=== PATIENT | male | born 1995 | race Hispanic/Latino ===

== ENCOUNTER 2024-05-14 06:32 | Emergency (ER) | payer BC ==
[2024-05-14 07:35] LABS: Anion Gap 18 mmol/L (10-20); BUN (Urea Nitrogen) 15 mg/dL (8.9-20.6); Calc. Creatinine Clearance 0 mL/min (70-130); Carbon Dioxide 18 mmol/L (22-29); Chloride 108 mmol/L (98-107); Estimated GFR 120; Glucose 110 mg/dL (70-105); Lipase 54 U/L (8-78); Potassium 3.3 mmol/L (3.5-5.1); Sodium 141 mmol/L (136-145)
[2024-05-14 07:36] LABS: #Basophils 0.04 10x3/uL (0.0-0.2); %Basophils 0.3 % (0.0-1.0); %Eosinophils 0.6 % (0.0-10.0); %Lymphocytes 14.4 % (21.0-51.0); %Monocytes 4.2 % (0.0-10.0); %Neutrophils 79.6 % (42.0-75.0); Hematocrit 44.3 % (42.0-52.0); Hemoglobin 15.3 g/dL (14.0-18.0); Mean Corpuscular HGB CONC 34.5 g/dL (32.0-36.0); Mean Corpuscular Hemoglobin 32.2 pg (27.0-31.0); Mean Corpuscular Volume 93.3 fL (78.0-98.0); Mean Platelet Volume 11.4 fL (7.4-10.4); Platelet Count 202 10x3/uL (130-400); RBC Distribution Width 12.2 % (11.5-14.5); Red Blood Cell (RBC) Count 4.75 mill/uL (4.70-6.10)
[2024-05-14 08:19] LABS: ALT (SGPT) 25 U/L (8-55); AST (SGOT) 32 U/L (5-34); Alkaline Phosphatase 50 U/L (40-110); Bilirubin, Total 1.3 mg/dL (0.2-1.2); Globulin 3.5 g/dL (2.4-3.5); Protein, Total 8.5 g/dL (6.0-8.3)
[2024-05-14] MEDS ORDERED: Ketorolac Tromethamine 30 MG (1 mL) VIAL ONE (08:27)
[2024-05-14] MEDS ORDERED: Ondansetron PF 4 MG/2 ML Vial ONE ×2 (08:27→11:47)
[2024-05-14] MEDS ORDERED: Piperacillin/Tazobactam 4.5 GM VIAL ONE (08:53)
[2024-05-14] MEDS ORDERED: Sodium Chloride 0.9% 100 ML ONE (08:53)
[2024-05-14] MEDS ORDERED: Morphine 4 MG/ML VIAL ONE ×2 (09:13→12:30)
[2024-05-14 09:58] LABS: Bacteria/HPF None Seen HPF (None Seen); Bilirubin Negative (Negative); Blood, Urine Negative (Negative); CAUTI Indications for Culture Pelvic or flank pain; Clarity Clear (Clear); Glucose, Urine (Dipstick) Normal (Negative); Ketone, Urine 60 mg/dL (Negative); Leukocyte Negative Leu/uL (Negative); Nitrite Negative (Negative); Protein, Urine (Dipstick) 30 mg/dL (Neg-Trace); RBC/HPF 0-3 HPF (0-3); Specific Gravity, Urine 1.038 (1.002-1.036); Squamous Epithelial None Seen HPF (0-3); Urobilinogen Normal mg/dL (Less than 2); WBC/HPF 0-3 HPF (0-3); pH, Urine 6.5 (5.0-9.0)
[2024-05-14 10:09] LABS: Lactic Acid 1.2 mmol/L (0.5-2.2)
[2024-05-14 10:17] LABS: Urine Culture Reflex No No
[2024-05-14] MEDS ORDERED: Potassium Chloride 20 MEQ TAB ONE (11:03)
[2024-05-14] MEDS ORDERED: Iopamidol-370 76% 500 ML MDV (1 ML CHARGE) ONE (12:18)
[2024-05-14] MEDS ORDERED: Pantoprazole 40 MG VIAL ONE (12:30)
[2024-05-14 12:58] LABS: Troponin I Less than 0.010 ng/mL (< 0.028)
== END 2024-05-14 14:48 | disposition home or self-care (01) ==
LOC: ERS 06:32
DX: K52.9 Noninfective gastroenteritis and colitis, unspecified (principal); E86.0 Dehydration; E87.6 Hypokalemia; F17.290 Nicotine dependence, other tobacco product, uncomplicated; Z55.6 Problems related to health literacy
CPT/HCPCS: 36415; 36416; 71045; 74177; 76705; 81001; 83605; 83690; 84484; 85025; 87040; 93005; 96361; 96365; 96375; 96376; C9113; J1885; J2270; J2405; J2543; J3490; Q9967

== ENCOUNTER 2024-12-03 10:34 | Outpatient (CLI) | payer BC | END 2024-12-03 10:35 | disposition home or self-care (01) | LOC: BICRAD 10:34 | PROVIDERS: ATTEND Family Medicine | DX: R07.89 Other chest pain (principal) | CPT/HCPCS: 71110 ==

== ENCOUNTER 2025-06-12 22:34 | Inpatient (IN) | payer BC ==
[~2025-06-12 22:34] MED LIST: Iopamidol 370 76% 100 ML VIAL ONE
[2025-06-12] MEDS ORDERED: Ondansetron PF 4 MG/2 ML Vial ONE (23:00)
[2025-06-12 23:08] LABS: #Basophils 0.04 10x3/uL (0.0-0.2); #Eosinophils Less than 0.03 10x3/uL (0.0-0.7); #Monocytes 0.88 10x3/uL (0.11-0.59); #Neutrophils 21.29 10x3/uL (1.40-6.50); %Basophils 0.2 % (0.0-1.0); %Eosinophils 0.0 % (0.0-10.0); %Lymphocytes 2.2 % (21.0-51.0); %Monocytes 3.8 % (0.0-10.0); %Neutrophils 93.1 % (42.0-75.0); Hematocrit 44.4 % (42.0-52.0); Hemoglobin 15.9 g/dL (14.0-18.0); Mean Corpuscular Hemoglobin 31.6 pg (27.0-31.0); Mean Corpuscular Volume 88.3 fL (78.0-98.0); Platelet Count 286 10x3/uL (130-400); Red Blood Cell (RBC) Count 5.03 mill/uL (4.70-6.10); White Blood Cell (WBC) Count 22.87 10x3/uL (4.8-10.8)
[2025-06-12 23:31] LABS: ALT (SGPT) 20 U/L (Less than 45); AST (SGOT) 30 U/L (11-34); Albumin 5.6 g/dL (3.1-4.5); Alkaline Phosphatase 59 U/L (40-110); Anion Gap 24 mmol/L (10-20); BUN (Urea Nitrogen) 16 mg/dL (8.9-20.6); Bilirubin, Total 2.0 mg/dL (0.3-1.2); Calc. Creatinine Clearance 0 mL/min (70-130); Calcium 10.6 mg/dL (7.8-10.44); Carbon Dioxide 22 mmol/L (22-29); Chloride 99 mmol/L (98-107); Globulin 3.8 g/dL (2.4-3.5); Glucose 175 mg/dL (70-105); Lipase 20 U/L (8-78); Magnesium 1.6 mg/dL (1.6-2.6); Potassium 3.8 mmol/L (3.5-5.1); Sodium 141 mmol/L (136-145)
[2025-06-13 00:26] LABS: Bacteria/HPF None Seen HPF (None Seen); CAUTI Indications for Culture Pelvic or flank pain; Glucose, Urine (Dipstick) Normal (Negative); Leukocyte Negative Leu/uL (Negative); Protein, Urine (Dipstick) 100 mg/dL (Neg-Trace); RBC/HPF None Seen HPF (0-3); WBC/HPF 0-3 HPF (0-3)
[2025-06-13 00:32] LABS: Specific Gravity, Urine Greater than 1.050 (1.002-1.036)
[2025-06-13 00:33] LABS: Urine Culture Reflex No No
[2025-06-13] MEDS ORDERED: Acetaminophen 325 MG TAB PO PRN (01:45)
[2025-06-13] MEDS ORDERED: Ondansetron PF 4 MG/2 ML Vial IVP PRN (01:45)
[2025-06-13 02:17] VITALS: BMI 23.6
[2025-06-13] MEDS: Pantoprazole 40 MG VIAL IVP SCH ×2 (02:40→02:49)
[2025-06-13 04:47] VITALS: TEMP 97.9
[2025-06-13 06:43] LABS: #Basophils 0.03 10x3/uL (0.0-0.2); #Eosinophils Less than 0.03 10x3/uL (0.0-0.7); #Monocytes 1.47 10x3/uL (0.11-0.59); #Neutrophils 19.66 10x3/uL (1.40-6.50); %Basophils 0.1 % (0.0-1.0); %Eosinophils 0.0 % (0.0-10.0); %Lymphocytes 4.2 % (21.0-51.0); %Monocytes 6.6 % (0.0-10.0); %Neutrophils 88.1 % (42.0-75.0); Hematocrit 35.2 % (42.0-52.0); Hemoglobin 12.4 g/dL (14.0-18.0); Mean Corpuscular Hemoglobin 32.1 pg (27.0-31.0); Mean Corpuscular Volume 91.2 fL (78.0-98.0); Platelet Count 205 10x3/uL (130-400); Red Blood Cell (RBC) Count 3.86 mill/uL (4.70-6.10); White Blood Cell (WBC) Count 22.32 10x3/uL (4.8-10.8)
[2025-06-13 08:03] LABS: Anion Gap 15 mmol/L (10-20); BUN (Urea Nitrogen) 13 mg/dL (8.9-20.6); Calc. Creatinine Clearance 135 mL/min (70-130); Calcium 8.2 mg/dL (7.8-10.44); Carbon Dioxide 21 mmol/L (22-29); Chloride 108 mmol/L (98-107); Glucose 113 mg/dL (70-105); Potassium 3.6 mmol/L (3.5-5.1); Sodium 140 mmol/L (136-145)
[2025-06-13] MEDS: cefTRIAXone\\ROCEPHIN 1 GM in Sodium Chloride 0.9% 100 ML IVPB SCH (08:17)
[2025-06-13] MEDS: Enoxaparin 40 MG (0.4 mL) SYRINGE SC SCH (08:18)
[2025-06-13 08:23] VITALS: BP 107/69
== END 2025-06-13 12:18 | disposition home or self-care (01) | DRG 392 ==
LOC: ERS 22:34 → T4-A 06-13 00:52
PROVIDERS: ADMIT Internal Medicine; ATTEND Family Medicine
DX: K52.9 Noninfective gastroenteritis and colitis, unspecified (principal); E87.20 Acidosis, unspecified; N12 Tubulo-interstitial nephritis, not specified as acute or chronic; F32.A Depression, unspecified; F41.9 Anxiety disorder, unspecified; I10 Essential (primary) hypertension; E11.9 Type 2 diabetes mellitus without complications; E86.0 Dehydration; F17.290 Nicotine dependence, other tobacco product, uncomplicated
CPT/HCPCS: 36415; 74177; 80048; 80053; 81001; 83605; 83690; 83735; 85025; 87040; 87428; J0696; J2270; J2405; J2470; J2543; J7030; Q9967